=== PATIENT | female | born 1955 | race African-American/Black ===

== ENCOUNTER → 2016-12-29 | Outpatient (CLI) | payer OTHER ==
[~2016-12-29] MED LIST: CYMBALTA30 MG PO; GABAPENTIN400 M2 PO; LEVAQUIN PO; LISINOPRIL-HCTZ1 T21 PO; MELATONIN3 M4 PO; OMEPRAZOLE40 M1 PO; RANITIDINE HCL150 M1 PO
--- NOTE | ~2016-12-29 | MY11 ---
[facility] A Service of [facility] RADIOLOGY TEXT RESULTS PATIENT: KERA URIARTE LOCATION: [facility] : 59 UNIT #: [id number] AGE: [address]: EDEN DESAI MD SEX: F ORDER DR: [id number] [facility]. [place], [place] [address] [id number] O MR#: [id number] Acc #: [id number] NAME: KERA URIARTE : 1955 SEX: F STUDY DATE/TIME: 12/29/2016 11:23 UNIT: [facility] ROOM: STUDY DESCRIPTION: MY Mammogram Screening Dig Bear Attending Physician: Eden Desai M.D. Referring Physician: Eden Desai M.D. Ordering Physician: Eden Desai M.D. Primary Care Physician: Eden Desai M.D. MEDICAL IMAGING REPORT This report is preliminary unless electronic signature is present EXAM Bilateral digital screening mammogram with CAD, 12/29/2016. HISTORY 61-year-old female with no personal or family history of breast cancer. No current complaints. COMPARISON Bilateral screening mammogram 05/21/2013 and 06/21/2011, performed At [facility] and [facility]. FINDINGS This study was originally performed 12/29/2016 and was submitted for interpretation after the arrival of outside comparisons. Scattered fibroglandular densities are present bilaterally. Asymmetric density in the lateral hemisphere, right breast, CC view, is unchanged from prior examinations in keeping with a benign finding. The parenchymal pattern appears stable. No new or developing nodules are identified. No architectural distortion is seen. Benign-appearing calcifications are present bilaterally, but no suspicious cluster of microcalcifications is evident. IMPRESSION Benign findings. Routine bilateral screening mammogram is recommended in 1 year. Patients over the age of 40 are entered into a reminder system with target due date for the next mammogram. A result letter will also be sent to the patient. BIRADS: 2 Benign finding. [facility] A Service of [facility] RADIOLOGY TEXT RESULTS PATIENT: KERA URIARTE LOCATION: [facility] : 59 UNIT #: [id number] AGE: [address]: EDEN DESAI MD SEX: F ORDER DR: Dictated by... Tory Francois M.D. THIS IS AN ELECTRONICALLY VERIFIED REPORT Tory Francois M.D. at 01/02/2017 7:08 AM SOPHY/carlos TD: 01/01/2017 14:53 JOB #: [id number] MEDICAL IMAGING REPORT Page 1 of 1 COPY
== END | disposition home or self-care (01) ==
LOC: CWCC 11:08
DX: Z12.31 Encounter for screening mammogram for malignant neoplasm of breast (principal)
CPT/HCPCS: G0202